=== PATIENT | female | born 1965 | race Caucasian/White ===

== ENCOUNTER 2016-09-27 05:05 | Emergency (ER) | payer BC ==
--- NOTE | 2016-10-06 19:05 | ER ---
ADMIT: 09/27/2016 RM/LOC: ER [facility] MR#: [id number] [facility] [id number] [place], [place] [id number] [place] [address] [place] [address] Emergency Room Report SEX: F AGE: 50 : 1965 DATE: 09/27/2016 The patient is a 50-year-old female, complaining of typical migraine headache for the past 2 hours, has used Imitrex in the past with good results. Denies any fevers, chills, or focal deficit. Exam remarkable for nontoxic, afebrile female with no meningismus or focal deficits. Received IV fluids, Zofran, Toradol, magnesium with complete relief of headache. Home with Imitrex 100 mg p.r.n. migraine, may repeat 1 hour, max 200 mg a day, 600 mg a week, #12; Zofran 8 mg ODT t.i.d. p.r.n. #30. Follow up GI Clinic as needed. Davis William MD/ ashok JOB #: [id number] CC: Davis William MD, Attending Physician Ana Jennings MD, Family Physician
== END 2016-09-27 06:40 | disposition home or self-care (01) ==
LOC: ER 05:05
DX: G43.909 Migraine, unspecified, not intractable, without status migrainosus (principal); F17.210 Nicotine dependence, cigarettes, uncomplicated